=== PATIENT | female | born 1950 | race African-American/Black ===

== ENCOUNTER → 2020-08-15 | Outpatient (CLI) | payer MEDICARE ==
--- NOTE | 2020-08-15 09:58 | RAD ---
EXAM: 1. NECK SOFT TISSUES 2 VIEWS. 2. LEFT SHOULDER 3 VIEWS. HISTORY: Left neck/trapezius mass. COMPARISON: None. FINDINGS: No soft tissue mass is clearly appreciable by radiographs. The airway and epiglottis appear normal. Images of the cervical spine reveal moderate degenerative disc disease from C4 through C7. No fractures are identified. Glenohumeral joint spaces and alignment are maintained. 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 IMPRESSION: 1. No soft tissue mass is appreciable by radiographs. Recommend CT of the involved region if there is persistent concern. Electronically signed by: Leyla Saunders MD (08/15/2020 9:55 AM) [id number]
== END ==
LOC: RAD 08:32
PROVIDERS: ATTEND Specialist
DX: R22.1 Localized swelling, mass and lump, neck (principal); R22.32 Localized swelling, mass and lump, left upper limb
CPT/HCPCS: 70360; 73030